=== PATIENT | female | born 1985 | race American Indian/Alaskan Native ===

== ENCOUNTER 2017-03-28 18:34 | Emergency (ER) | payer BC, MEDICAID ==
[2017-03-28 18:42] VITALS: BP 130/75; PULSE 98; RESP 19; TEMP 98.4; O2SAT 100
[2017-03-28] MEDS ORDERED: Lactated Ringer's 1,000 ML IV STA (19:36)
--- NOTE | 2017-03-28 19:58 | ED PDOC ---
HPI: Abdomen Time Seen by Provider: 03/28/17 18:53 Chief Complaint (Nursing): Abdominal Pain Chief Complaint (Provider): Abdominal Pain History Per: Patient History/Exam Limitations: no limitations Onset/Duration Of Symptoms: Hrs (3 hours prior to arrival), Sudden Onset Outside of [place] travel?: No Current Symptoms Are (Timing): Still Present Severity: Severe Pain Scale Rating Of: 9 Location Of Pain/Discomfort: LLQ Quality Of Discomfort: Sharp Associated Symptoms: Nausea, Vomiting (non-bilious, non-bloody). denies: Diarrhea, Urinary Symptoms Additional Complaint(s): Elisa Nick is a 31 year old female, with a past medical history of hypercholesterolemia, who presents to the emergency department for the evaluation of sharp abdominal pain, that the patient began experiencing 3 hours prior to arrival. The pain began suddenly, is localized to her lower left quadrant, and does not radiate elsewhere. Patient states that her symptoms are similar to a previous episode of a ruptured cyst. Associated nausea and non- bilious, non-bloody vomiting are currently present. Denies diarrhea or urinary symptoms. PMD: Dr. Box Past Medical History Reviewed: Historical Data, Nursing Documentation, Vital Signs Vital Signs: Last Vital Signs Temp 98.4 F 03/28/17 18:39 Pulse 98 H 03/28/17 18:39 Resp 19 03/28/17 18:39 BP 130/75 03/28/17 18:39 Pulse Ox 100 03/28/17 22:55 - Medical History PMH: Hypercholesterolemia Denies: Chronic Kidney Disease - Surgical History Other surgeries: Ruptured Ovarian Cyst Surgery - Family History Family History: States: Diabetes, Hypertension - Social History Current smoker - smoking cessation education provided: Yes (Light smoker <10 cigarettes daily) Alcohol: Social Drugs: Denies - Immunization History Hx Tetanus Toxoid Vaccination: No Hx Influenza Vaccination: No Hx Pneumococcal Vaccination: No - Home Medications Home Medications: Ambulatory Orders Medication Instructions Recorded Oxycodone HCl/Acetaminophen 1 tab PO Q6 PRN #12 tab 01/15/16 [Percocet 325 mg-5 mg] Ondansetron [Zofran] 4 mg PO Q8H #10 tab 11/12/16 Ibuprofen [Motrin Tab] 600 mg PO Q8 PRN #60 tab 03/28/17 traMADol [Ultram] 50 mg PO TID PRN #15 tab 03/28/17 - Allergies Allergies/Adverse Reactions: Allergies Allergy/AdvReac Type Severity Reaction Status Date / Time No Known Allergies Allergy Verified 08/22/15 16:48 Review of Systems ROS Statement: Except As Marked, All Systems Reviewed And Found Negative Gastrointestinal: Positive for: Nausea, Vomiting (non-bilious), Abdominal Pain. Negative for: Diarrhea, Hematemesis Genitourinary Female: Negative for: Dysuria, Hematuria Physical Exam - Reviewed Nursing Documentation Reviewed: Yes Vital Signs Reviewed: Yes - Physical Exam Appears: Positive for: Uncomfortable, In Acute Distress (moderate painful distress) Head Exam: Positive for: ATRAUMATIC, NORMAL INSPECTION, NORMOCEPHALIC Skin: Positive for: Normal Color, Warm, Dry Eye Exam: Positive for: EOMI, Normal appearance, PERRL ENT: Positive for: Normal ENT Inspection. Negative for: Pharyngeal Erythema, Tonsillar Exudate Neck: Positive for: Normal, Painless ROM, Supple Cardiovascular/Chest: Positive for: Regular Rate, Rhythm. Negative for: Murmur Respiratory: Positive for: Normal Breath Sounds. Negative for: Wheezing, Respiratory Distress Gastrointestinal/Abdominal: Positive for: Normal Exam, Tenderness (tender to palpation of LLQ, rest of abdomen is non-tender), Guarding. Negative for: Mass (papular mass), Rebound Back: Positive for: Normal Inspection. Negative for: Decreased ROM Extremity: Positive for: Normal ROM. Negative for: Tenderness, Deformity Lymphatic: Negative for: Adenopathy Neurologic/Psych: Positive for: Alert, Oriented. Negative for: Motor/Sensory Deficits - Laboratory Results Result Diagrams: 03/28/17 20:00 03/28/17 20:00 - ECG O2 Sat by Pulse Oximetry: 100 (RA) Pulse Ox Interpretation: Normal Medical Decision Making Medical Decision Makin:53 Initial Impression: Left lower quadrant pain Initial Plan: * Transvaginal US * Type and Screen * CBC * CMP * PT/PTT * Beta-HCG Quantitative * HCG, Qualitative Serum * Urine * Urinalysis * Lactated Ringer's 1,000 ml IV at 1,000 mls/hr * Morphine 4 mg IVP * Zofran 8 mg IV * Reevaluation Labs unremarkable. EXAM: US Pelvis, Transvaginal CLINICAL HISTORY: 31 years old, female; Pain; Pelvic pain; Additional info: Llq pain R/O ovarian cysta rupture TECHNIQUE: Real-time transvaginal pelvic ultrasound (complete) with image documentation. Transvaginal imaging was used for better evaluation of the endometrium and adnexa. COMPARISON: CT - ABD PELVIS PO IV CONTRAST 01/15/2016 3:27:10 AM FINDINGS: Uterus/cervix: Uterus measures 8.7 x 4.5 x 5.4 cm in size. 2.0 x 1.4 x 2.1 cm uterine mass. Endometrium: 0.9 cm in thickness. Right ovary: 4.1 x 2.0 x 3.1 cm in size. No mass. Small follicles. Normal flow. Left ovary: 5.6 x 3.5 x 5.6 cm in size. 3.0 x 3.3 x 3.3 cm hypoechoic lesion with internal echoes. Small follicles. Normal flow. Free fluid: Small free fluid within pelvis. Bladder: Empty bladder which cannot be evaluated with this probe. IMPRESSION: 1. Probable hemorrhagic LEFT ovarian cyst. Recommend sonographic followup in 6 weeks to ensure resolution and exclude other etiologies. 2. Probable fibroid. 3. Incidental/non-acute findings are described above. Thank you for allowing us to participate in the care of your patient. Dictated and Authenticated by: Luis Gillespie MD 03/28/2017 10:10 PM Eastern Time ([place] & [place]) Pt continues to have pain. Addn'l morphine ordered. NOLAN Katz OB construction project mgr. Recommends f/u at phlebotomy services technician. Advises rechecking orthostatics prior to discharge. Scribe Attestation: Documented by Shyam Malone, acting as a scribe for Neeta Tavares MD. Provider Scribe Attestation: All medical record entries made by the Scribe were at my direction and personally dictated by me. I have reviewed the chart and agree that the record accurately reflects my personal performance of the history, physical exam, medical decision making, and the department course for this patient. I have also personally directed, reviewed, and agree with the discharge instructions and disposition. Disposition - Clinical Impression Clinical Impression: Ruptured ovarian cyst Counseled Patient/Family Regarding: Studies Performed, Diagnosis, Need For Followup, Rx Given - Disposition Referrals: Rafiq Appiah DO [Staff Provider] - 03/31/17 [facility] [Outside] Disposition: Routine/Home Disposition Time: 23:00 Condition: IMPROVED Prescriptions: Ibuprofen [Motrin Tab] 600 mg PO Q8 PRN #60 tab PRN Reason: Pain, Moderate (4-7) traMADol [Ultram] 50 mg PO TID PRN #15 tab PRN Reason: SEVERE PAIN ONLY Instructions: Ovarian Cyst (ED) Forms: , ,
[2017-03-28 20:11] LABS: BASO % 0.2 % (0.0-2.0); EOS % 0.5 % (0.0-4.0); HEMATOCRIT 36.2 % (34.0-47.0); LYMPH # 2.8 K/uL (1.0-4.3); LYMPH % 27.4 % (20.0-40.0); MEAN CELL VOLUME 73.8 fl (81.0-99.0); MEAN CORPUSCULAR HEMOGLOBIN 22.9 pg (27.0-31.0); MEAN CORPUSCULAR HGB CONC 31.1 g/dL (33.0-37.0); MEAN PLATELET VOLUME 8.3 fl (7.2-11.7); MONO # 0.7 K/uL (0.0-0.8); MONO % 6.6 % (0.0-10.0); NEUT # 6.7 K/uL (1.8-7.0); NEUT % 65.3 % (50.0-75.0); RED CELL DISTRIBUTION WIDTH 15.8 % (11.5-14.5); WHITE BLOOD COUNT 10.3 K/uL (4.8-10.8)
[2017-03-28 20:20] LABS: ALB/GLOB RATIO 1.3 (1.0-2.1); ALKALINE PHOSPHATASE 76 U/L (38-126); ALT/SGPT 26 U/L (9-52); AST/SGOT 27 U/L (14-36); BILIRUBIN,TOTAL 0.1 mg/dl (0.2-1.3); BLOOD UREA NITROGEN 12 mg/dl (7-17); CALCIUM 9.2 mg/dL (8.4-10.2); CARBON DIOXIDE 28 mmol/L (22-30); CHLORIDE 103 mmol/L (98-107); GFR AFRICAN-AMERICAN > 60; GLUCOSE,RANDOM 94 mg/dL (65-105); POTASSIUM 3.8 MMOL/L (3.6-5.0); SODIUM 140 mmol/l (132-148); TOTAL PROTEIN 7.7 G/DL (6.3-8.2)
[2017-03-28 20:35] LABS: PARTIAL THROMBOPLASTIN TIME 20.8 SECONDS (23.3-32.5)
--- NOTE | 2017-03-28 22:10 | US ---
EXAM: US Pelvis, Transvaginal CLINICAL HISTORY: 31 years old, female; Pain; Pelvic pain; Additional info: Llq pain R/O ovarian cysta rupture TECHNIQUE: Real-time transvaginal pelvic ultrasound (complete) with image documentation. Transvaginal imaging was used for better evaluation of the endometrium and adnexa. COMPARISON: CT - ABD PELVIS PO IV CONTRAST 01/15/2016 3:27:10 AM FINDINGS: Uterus/cervix: Uterus measures 8.7 x 4.5 x 5.4 cm in size. 2.0 x 1.4 x 2.1 cm uterine mass. Endometrium: 0.9 cm in thickness. Right ovary: 4.1 x 2.0 x 3.1 cm in size. No mass. Small follicles. Normal flow. Left ovary: 5.6 x 3.5 x 5.6 cm in size. 3.0 x 3.3 x 3.3 cm hypoechoic lesion with internal echoes. Small follicles. Normal flow. Free fluid: Small free fluid within pelvis. Bladder: Empty bladder which cannot be evaluated with this probe. IMPRESSION: 1. Probable hemorrhagic LEFT ovarian cyst. Recommend sonographic followup in 6 weeks to ensure resolution and exclude other etiologies. 2. Probable fibroid. 3. Incidental/non-acute findings are described above.
== END 2017-03-28 23:38 | disposition home or self-care (01) ==
LOC: H.ER 18:34
DX: N83.202 Unspecified ovarian cyst, left side (principal); R11.2 Nausea with vomiting, unspecified; E78.00 Pure hypercholesterolemia, unspecified; F17.210 Nicotine dependence, cigarettes, uncomplicated; R10.32 Left lower quadrant pain
CPT/HCPCS: 76830; 80053; 81025; 84702; 84703; 85025; 85610; 85730; 86850; 86900; 96361; 96374; 96375; 96376; 99284; J1885; J2270; J2405; J7120

== ENCOUNTER 2018-01-27 10:28 | Emergency (ER) | payer MEDICAID ==
[2018-01-27 10:34] VITALS: BMI 23.2
[2018-01-27 10:35] VITALS: BP 114/70; PULSE 62; RESP 16; TEMP 98; O2SAT 100
--- NOTE | 2018-01-27 11:36 | ED PDOC ---
HPI: Abdomen Chief Complaint (Provider): Abdominal pain History Per: Patient History/Exam Limitations: no limitations Onset/Duration Of Symptoms: Hrs (2) Current Symptoms Are (Timing): Intermittent Episodes Pain Scale Rating Of: 8 Location Of Pain/Discomfort: Periumbilical, Suprapubic Quality Of Discomfort: Pressure Associated Symptoms: Nausea Exacerbating Factors: None Alleviating Factors: None Last Bowel Movement: Today Abnormal Vaginal Bleeding: No <Jonh Mullins - Last Filed: 01/27/18 15:09> <Graham Whitley III - Last Filed: 01/29/18 12:42> Time Seen by Provider: 01/27/18 11:26 Chief Complaint (Nursing): Abdominal Pain Additional Complaint(s): 32 yo ,f, A2 , PMhx/o HLD, Rupture ovary cyst(last event 03/2017) presents to ED c/o suprapubic abdominal pain started this morning 8 am, intermittent, pressure, every 5 minutes, 8/10 intensity, radiated to right flank when sitting , associated with nausea. She denies fever, vaginal bleeding, vaginal discharge , dysuria, hematuria, vomiting, diarrhea, abd trauma. Patient had similar symptoms last year 03/2017 and has had follow up with WAREHOUSE RECEIVING SUPERVISOR PMD: Foster (Jonh Mullins) Supervising Attending Note <Jonh Mullins - Last Filed: 01/27/18 15:09> - Attestation: I have personally seen and examined this patient.: Yes I have fully participated in the care of the patient.: Yes I have reviewed all pertinent clinical information: Yes <Graham Whitley III - Last Filed: 01/29/18 12:42> - Notes: Notes:: agree w findings and pt seen/examined. Attempt to contact Dr Kunz made, was awaiting return call on dispo Abdomen non-acute on discharge. (Graham Whtiley III) Past Medical History Reviewed: Historical Data, Nursing Documentation, Vital Signs - Medical History PMH: Hypercholesterolemia Denies: Chronic Kidney Disease - Family History Family History: States: Diabetes, Hypertension - Social History Alcohol: Social Drugs: Denies - Immunization History Hx Tetanus Toxoid Vaccination: No Hx Influenza Vaccination: No Hx Pneumococcal Vaccination: No <Jonh Mullins - Last Filed: 01/27/18 15:09> <Graham Whitley III - Last Filed: 01/29/18 12:42> Vital Signs: Last Vital Signs Temp 98 F 01/27/18 10:34 Pulse 62 01/27/18 10:34 Resp 16 01/27/18 10:34 BP 114/70 01/27/18 10:34 Pulse Ox 100 01/27/18 15:09 - Home Medications Home Medications: Ambulatory Orders Medication Instructions Recorded Oxycodone HCl/Acetaminophen 1 tab PO Q6 PRN #12 tab 01/15/16 [Percocet 325 mg-5 mg] Ondansetron [Zofran] 4 mg PO Q8H #10 tab 11/12/16 Ibuprofen [Motrin Tab] 600 mg PO Q8 PRN #60 tab 03/28/17 traMADol [Ultram] 50 mg PO TID PRN #15 tab 03/28/17 Naproxen [Naprosyn] 500 mg PO BID PRN #14 tablet 01/27/18 - Allergies Allergies/Adverse Reactions: Allergies Allergy/AdvReac Type Severity Reaction Status Date / Time No Known Allergies Allergy Verified 08/22/15 16:48 Review of Systems ROS Statement: Except As Marked, All Systems Reviewed And Found Negative Gastrointestinal: Positive for: Nausea, Abdominal Pain <Jonh Mullins - Last Filed: 01/27/18 15:09> Physical Exam - Reviewed Nursing Documentation Reviewed: Yes - Physical Exam Appears: Positive for: Well, No Acute Distress Head Exam: Positive for: ATRAUMATIC, NORMOCEPHALIC Skin: Positive for: Normal Color ENT: Positive for: Normal ENT Inspection Neck: Positive for: Normal Cardiovascular/Chest: Positive for: Regular Rate, Rhythm, Other (splitting S2 left sternal border). Negative for: Murmur Respiratory: Positive for: Normal Breath Sounds. Negative for: Crackles, Rales , Rhonchi, Wheezing Gastrointestinal/Abdominal: Positive for: Bowel Sounds (normal ), Soft, Tenderness (suprapubic TD and periumbilical lower side ). Negative for: Distended, Guarding, Rebound Pelvic Exam: Positive for: External Exam Normal (Family Readiness Support Assistant in room RN), No Cerv. Motion Tender, No Masses, Discharge (small amount physiologic discharge). Negative for: Active Bleeding, Blood, Cervicitis, Tender W/Cervical Motion, Tender Adnexa, Tender Uterus, Ulcers Back: Positive for: Normal Inspection, L CVA Tenderness (mild CVTA) Extremity: Positive for: Normal ROM. Negative for: Tenderness, Pedal Edema, Calf Tenderness Neurologic/Psych: Positive for: Alert, Oriented. Negative for: Motor/Sensory Deficits <Jonh Mullins - Last Filed: 01/27/18 15:09> - Laboratory Results Result Diagrams: 01/27/18 11:33 01/27/18 11:33 - ECG O2 Sat by Pulse Oximetry: 100 <Jonh Mullins - Last Filed: 01/27/18 15:09> - Laboratory Results Result Diagrams: 01/27/18 11:33 01/27/18 11:33 <Graham Whitley III - Last Filed: 01/29/18 12:42> Medical Decision Making <Jonh Mullins - Last Filed: 01/27/18 15:09> <Graham Whitley III - Last Filed: 01/29/18 12:42> Medical Decision Makin:20 AM Impression Abdominal pain possible ovary rupture cyst Differential Ovary torsion, Acute appendicitis, PID, Acute diverticulitis, Cystitis. Plan CBC, CMP, Pt/PTT urine dip,urine preg EKG TV US Iv fluids NS 1L Toradol 30 mg IV Patient reports feeling much better after toradol and reports pain has partially subsided and does not desire more pain medication. Labs reviewed CBC: no leukocytosis, Anemia: Hgb 10.3, urine preg neg, urine dip normal. TV US: Fundal fibroid 2.2 x 1.8 x 2.3 cm. ovaries normal . unremarkable pelvis US. (Jonh Mullins) Disposition - Disposition Disposition Time: 15:05 <Johnny Mullinseloise - Last Filed: 01/27/18 15:09> <Graham Whitley III - Last Filed: 01/29/18 12:42> - Clinical Impression Clinical Impression: Pelvic pain - Disposition Referrals: Provider TBD, [Primary Care Provider] - Mauricio Ho MD [Staff Provider] - Condition: FAIR Additional Instructions: Return to ER for any worse or new symptoms. STD testing will return in 2-3 days, you will only be called for positive results. See Dr Kunz in 3-4 days for re-evaluation. Prescriptions: Naproxen [Naprosyn] 500 mg PO BID PRN #14 tablet PRN Reason: Pain, Moderate (4-7) Instructions: Acute Pelvic Pain (DC) Forms: [employer] (Persian)
[2018-01-27 11:37] LABS: BASO % 0.5 % (0.0-2.0); EOS # 0.1 K/uL (0.0-0.7); EOS % 1.3 % (0.0-4.0); HEMOGLOBIN 10.3 g/dL (12.0-16.0); LYMPH % 28.8 % (20.0-40.0); MEAN CELL VOLUME 72.5 fl (81.0-99.0); MEAN CORPUSCULAR HEMOGLOBIN 23.1 pg (27.0-31.0); MEAN CORPUSCULAR HGB CONC 31.8 g/dL (33.0-37.0); MEAN PLATELET VOLUME 7.9 fl (7.2-11.7); MONO # 0.6 K/uL (0.0-0.8); NEUT # 4.3 K/uL (1.8-7.0); NEUT % 61.4 % (50.0-75.0); RBC 4.47 Mil/uL (3.80-5.20); RED CELL DISTRIBUTION WIDTH 15.9 % (11.5-14.5); WHITE BLOOD COUNT 6.9 K/uL (4.8-10.8)
[2018-01-27] MEDS: Sodium Chloride 0.9% 1,000 ML IV SCH ×2 (11:47→13:07)
[2018-01-27 11:51] LABS: ALBUMIN 4.2 g/dL (3.5-5.0); BLOOD UREA NITROGEN 9 mg/dl (7-17); CALCIUM 9.2 mg/dL (8.4-10.2); GFR AFRICAN-AMERICAN > 60; GFR NON-AFRICAN AMERICAN > 60
[2018-01-27 11:52] LABS: ALB/GLOB RATIO 1.1 (1.0-2.1); ALT/SGPT 38 U/L (9-52); AST/SGOT 38 U/L (14-36)
[2018-01-27 12:00] LABS: PARTIAL THROMBOPLASTIN TIME 28.8 Seconds (25.6-37.1); PROTHROMBIN TIME 11.3 Seconds (9.8-13.1)
--- NOTE | 2018-01-27 12:35 | US ---
HISTORY: suprapubic pain. hx/o ovary cyst rupture COMPARISON: Pelvic ultrasound dated 03/28/2017. TECHNIQUE: Grayscale, color Doppler and spectral evaluation the pelvis performed transvaginally FINDINGS: UTERUS: Measures 9.0 x 3.5 x 5.0 cm. Anteverted. Normal in size and appearance. Fundal fibroid measuring 2.2 x 1.8 x 2.3 cm. ENDOMETRIUM: Measures 8 mm in diameter. Unremarkable. CERVIX: No cervical abnormality identified. RIGHT OVARY: Measures 4.0 x 2.0 x 2.7 cm. No solid mass. Normal flow. LEFT OVARY: Measures 3.2 x 2.0 x 2.9 cm. No solid mass. Normal flow. FREE FLUID: Small volume free fluid noted. OTHER FINDINGS: None. IMPRESSION: Unremarkable pelvic ultrasound.
--- NOTE | 2018-01-27 15:14 | CARD ---
APPROVED REPORT EKG Measurement Heart [id number] <Conclusion> Normal sinus rhythm Normal ECG
== END 2018-01-27 15:09 | disposition home or self-care (01) ==
LOC: H.ER 10:28 → SUPCPDRO 10:28 → H.ER 15:09
DX: R10.2 Pelvic and perineal pain (principal); N83.209 Unspecified ovarian cyst, unspecified side; E78.00 Pure hypercholesterolemia, unspecified
CPT/HCPCS: 76830; 80053; 81025; 85025; 85610; 85730; 87070; 87491; 87591; 93005; 96374; 96375; 99285; J1885; J2405; J7040